=== PATIENT | female | born 1985 | race Caucasian/White ===

== ENCOUNTER 2024-02-27 12:52 | Outpatient (CLI) | payer OTHER, SELFPAY ==
--- NOTE | ~2024-02-27 | MR_ITS ---
EXAMINATION: MR brain/brain stem wo con DATE: 02/27/2024 13:22 INDICATION: Episodic cluster headache, intractable. TECHNIQUE: Magnetic resonance imaging (MRI) of the brain and brainstem was performed without intraven ous contrast. COMPARISON: None. FINDINGS: There is no intracranial hemorrhage, acute infarction, or abnormal intracranial mass lesion . The ventricles are normal in size. The paranasal sinuses are clear. The mastoid air cells are laura l. The orbits are normal. IMPRESSION: 1. Normal brain. Reviewed, dictated and finalized at location A. EYOR OIL WELL DIRECTIONAL IMPRESSION: 1. Normal brain.
== END 2024-02-27 12:53 | disposition home or self-care (01) ==
PROVIDERS: PCP Hospitalist; Visit Provider Hospitalist
DX: G44.011 Episodic cluster headache, intractable (principal)
CPT/HCPCS: 70551